=== PATIENT | female | born 1930 | race Caucasian/White ===

== ENCOUNTER 2019-09-11 09:56 | Emergency (ER) | payer MEDICARE, BC ==
--- OUTSIDE RECORDS SUMMARY | 2019-09-11 10:31 | XMS REPORT | Continuity of Care Document ---
:1930 External Reference #:[id number] Author Name Kristie Johnson MD Address [address] [place] [address] Care Team Providers Name Role Phone Kristie Johnson MD - Internal Care Team Information Principal Engineer Medicine Problems Active Problems Provider Date Benign essential hypertension Love Salomon, MSN, SKIN TANNER Onset: 2012 Edema Love Salomon, ALEXA, SKIN TANNER Onset: 10/24/2012 Hypothyroidism Tigist Boogie MD Onset: 03/04/2013 Benign neoplasm of renal pelvis Tigist Boogie MD Onset: 10/30/2011 Essential hypertension Esther Lombardo, STORE CLERK CHECKER Onset: 05/29/2011 Anemia Onset: 05/06/2015 Fracture of bone of hip region Onset: 05/01/2015 Disorder of bladder Jacquelyn Katz MD Onset: 08/19/2018 Eruption Jacquelyn Katz MD Onset: 01/20/2018 Chronic kidney disease stage 2 Jacquelyn Katz MD Onset: 01/20/2018 Vitamin D deficiency Jacquelyn Katz MD Onset: 01/20/2018 Social History Type Date Description Comments Sex Unknown Tobacco Use Start: Unknown Never Smoked Cigarettes ETOH Use Occasionally consumes beer Tobacco Use Start: Unknown Patient denies history of smoking Smoking Status Reviewed: 09/01/19 Patient denies history of smoking Allergies, Adverse Reactions, Alerts Active Allergies Reaction Severity Comments Date Macrolides and Ketolides Iodine Penicillins 05/01/2015 Fluorescein Hydrocodone Hallucinations 06/23/2015 Medications Active Medications SIG Qnty Indications Ordering Date Provider Amlodipine Besylate 1 by mouth every 30tabs I10 Ratnasingam, 2.5mg day MD Kristie 9 Tablets Colace 1 by mouth twice 60caps Sterling, Jacquelyn, 100mg Capsules daily as needed 8 for constipation Levothyroxine Sodium take one tablet by 90tabs Sharon, 75mcg mouth every day MD Sophie, 7 Tablets PHD Artificial Tears Sterling, Jacquelyn, 0.1-0.3% 6 Solution Furosemide 1 tab by mouth 30tabs R60.0 Salomon, Love 20mg Tablets every day needed Raymond 3 for leg swelling r MSN, SKIN TANNER Hydrochlorothiazide take one capsule 90caps Penny Katza, 12.5mg by mouth every day MD 2 Capsules Istalol 1 gtt OD qd Unknown 0.5% Solution 0 Prednisolone Acetate 1 gtt OD qod Unknown 1% 0 Suspension Vitamin D takes once in a Unknown 2000Unit Capsules while 0 Metoprolol Succinate ER take one tablet by 30tabs Ratnasingam, 100mg mouth every day MD Kristie 0 Tablets ER 24HR Immunizations CPT Code Status Date Vaccine Lot # [id number] Given 07/04/2019 Influenza High Dose U-Flu Given 06/06/2018 Influenza,Unspecified Q2038 Given 06/16/2016 Influenza Vaccine (Fluzone) Age 3 And Older 61164 Given 07/06/2015 Pneumococcal Conjugate Vaccine 13 Valent For [id number] Intramuscular Use Q2038 Given 05/29/2015 Influenza Vaccine (Fluzone) Age 3 And Older 20409 Given 06/05/2014 flu vaccination 76724 Given 06/20/2013 flu vaccination 24973 Given Unknown Pneumovax Injection Vital Signs Date Vital Result Comment 09/01/2019 3:48pm BP Systolic Sitting Left Arm 104 mmHg BP Diastolic Sitting Left Arm 52 mmHg Heart Rate 60 /min Respiratory Rate 24 /min Height 62 inches 5'2" Weight 97.00 lb BMI (Body Mass Index) 17.7 kg/m2 BSA (Body Surface Area) 1.41 m2 [place] body weight in kilograms 50 kg O2 % BldC Oximetry 98 % ra 02/17/2019 3:24pm BP Systolic Sitting Left Arm 108 mmHg BP Diastolic Sitting Left Arm 64 mmHg Body Temperature 98.4 F Heart Rate 57 /min Respiratory Rate 18 /min Height 62 inches 5'2" Weight 106.00 lb BMI (Body Mass Index) 19.4 kg/m2 BSA (Body Surface Area) 1.46 m2 [place] body weight in kilograms 50 kg O2 % BldC Oximetry 98 % Ra Results Test Acquired Date Facility Test Result H/L Range Note CBC 08/24/2019 [facility] White Blood 4.8 10^3/uL Normal 3.5-10.8 W/Automated [phone] Count Diff Red Blood Count 4.28 10^6/uL Normal 3.70-4.87 Hemoglobin 12.1 g/dL Normal 12.0-16.0 Hematocrit 36 % Normal 35-47 Mean Corpuscular Volume 84 fL Normal 80-97 Mean Corpuscular Hemoglobin 28 pg Normal 27-31 Mean Corpuscular HGB Conc 34 g/dL Normal 31-36 Red Cell Distribution Width 15 % Normal 10-15 Platelet Count 247 10^3/uL Normal 150-450 Mean Platelet Volume 8.8 fL Normal 7.4-10.4 Abs Neutrophils 3.1 10^3/uL Normal 1.5-7.7 Abs Lymphocytes 1.0 10^3/uL Normal 1.0-4.8 Abs Monocytes 0.5 10^3/uL Normal 0-0.8 Abs Eosinophils 0.1 10^3/uL Normal 0-0.6 Abs Basophils 0.1 10^3/uL Normal 0-0.2 Abs Nucleated RBC 0.0 10^3/uL Granulocyte % 64.3 % Lymphocyte % 21.7 % Monocyte % 10.5 % Eosinophil % 1.3 % Basophil % 2.2 % Nucleated Red Blood Cells % 0.1 Comprehensive 08/24/2019 [facility] Sodium 139 mmol/ L Normal 135-145 Metabolic Panel [phone] Potassium 3.9 mmol/L Normal 3.5-5.0 Chloride 100 mmol/L Low 101-111 Co2 Carbon Dioxide 31 mmol/L Normal 22-32 Anion Gap 8 mmol/L Normal 2-11 Glucose 97 mg/dL Normal 70-100 Blood Urea Nitrogen 24 mg/dL Normal 6-24 Creatinine 1.05 mg/dL High 0.51-0.95 BUN/Creatinine Ratio 22.9 High 8-20 Calcium 9.7 mg/dL Normal 8.6-10.3 Total Protein 6.8 g/dL Normal 6.4-8.9 Albumin 4.2 g/dL Normal 3.2-5.2 Globulin 2.6 g/dL Normal 2-4 Albumin/Globulin Ratio 1.6 Normal 1-3 Total Bilirubin 0.60 mg/dL Normal 0.2-1.0 Alkaline Phosphatase 77 U/L Normal 34-104 Alt 10 U/L Normal 7-52 Ast 24 U/L Normal 13-39 Egfr Non- 49.5 >60 Egfr 59.8 >60 1 Laboratory test 08/24/2019 [facility] Phosphorus 3.5 mg/dL Normal 2.5-5.0 finding [phone] Pthi 08/24/2019 [facility] Calcium (PTH 9.9 mg/dL Normal 8.6-10.3 [phone] Intact) PTH Intact 74.3 pg/mL Normal 12-88 Laboratory 07/17/2019 [facility] Blood Urea 22 mg/dL Normal 6-24 2, 3 test finding [phone] Nitrogen Creatinine 07/17/2019 [facility] Creatinine 0.99 High 0.51-0. [phone] mg/dL 95 Egfr Non- 52.9 >60 Egfr 64.1 >60 4 Laboratory test 07/13/2019 [facility] Blood Urea 20 mg/dL Normal 6-24 finding [phone] Nitrogen Creatinine 07/13/2019 [facility] Creatinine 1.12 High 0.51-0.9 [phone] mg/dL 5 Egfr Non- 45.9 >60 Egfr 55.6 >60 5 1 Because ethnic data is not always readily available, this report includes an eGFR for both -Americans and non- Americans. The National Kidney Disease Education Program (NKDEP) does not endorse the use of the MDRD equation for patients that are not between the ages of 18 and 70, are , have extremes of body size, muscle mass, or nutritional status, or are non- or non-. According to the National Kidney Foundation, irrespective of diagnosis, the stage of the disease is based on the level of kidney function: Stage Description GFR(mL/min/1.73 m(2)) 1 Kidney damage with normal or decreased GFR 90 2 Kidney damage with mild decrease in GFR 60-89 3 Moderate decrease in GFR 30-59 4 Severe decrease in GFR 15-29 5 Kidney failure <15 (or dialysis) 2 [id number] 3 [id number] 4 Because ethnic data is not always readily available, this report includes an eGFR for both -Americans and non- Americans. The National Kidney Disease Education Program (NKDEP) does not endorse the use of the MDRD equation for patients that are not between the ages of 18 and 70, are , have extremes of body size, muscle mass, or nutritional status, or are non- or non-. According to the National Kidney Foundation, irrespective of diagnosis, the stage of the disease is based on the level of kidney function: Stage Description GFR(mL/min/1.73 m(2)) 1 Kidney damage with normal or decreased GFR 90 2 Kidney damage with mild decrease in GFR 60-89 3 Moderate decrease in GFR 30-59 4 Severe decrease in GFR 15-29 5 Kidney failure <15 (or dialysis) 5 Because ethnic data is not always readily available, this report includes an eGFR for both -Americans and non- Americans. The National Kidney Disease Education Program (NKDEP) does not endorse the use of the MDRD equation for patients that are not between the ages of 18 and 70, are , have extremes of body size, muscle mass, or nutritional status, or are non- or non-. According to the National Kidney Foundation, irrespective of diagnosis, the stage of the disease is based on the level of kidney function: Stage Description GFR(mL/min/1.73 m(2)) 1 Kidney damage with normal or decreased GFR 90 2 Kidney damage with mild decrease in GFR 60-89 3 Moderate decrease in GFR 30-59 4 Severe decrease in GFR 15-29 5 Kidney failure <15 (or dialysis) Procedures Date Code Description Status 09/16/2013 [id number] Mammogram Completed Medical Devices Description No Information Available Encounters Type Date Location Provider Dx Diagnosis Office Visit 09/01/2019 [facility], [facility]1Darius Essential (primary) 4:00p Office MD Kristie hypertension E03.9 Hypothyroidism, unspecified N32.9 Bladder disorder, unspecified N18.2 Chronic kidney disease, stage 2 (mild) Assessments Date Code Description Provider 09/01/2019 I10 Essential (primary) hypertension Kristie Johnson MD 09/01/2019 E03.9 Hypothyroidism, unspecified Kristie Johnson MD 09/01/2019 N32.9 Bladder disorder, unspecified Kristie Johnson MD 09/01/2019 N18.2 Chronic kidney disease, stage 2 (mild) Kristie Johnson MD Plan of Treatment Future Appointment(s):03/02/2020 4:00 pm - Kristie Johnson MD at [facility]t0609/01/2019 - Kristie Johnson MDI10 Essential (primary ) hypertensionNew Medication:Amlodipine Besylate 2.5 mg - 1 by mouth every dayFollow up:f/u 6 months labs prior to fraboS86.9 Hypothyroidism, unspecifiedNew Labs:Comprehensive Metabolic Panel, Scheduled: 02/24/20CBC W/ Automated Diff, Scheduled: 02/24/20TSH Reflex FT4 And/Or FT3, Scheduled: N32.9 Bladder disorder, gjpwjiqdqdjE30.2 Chronic kidney disease, stage 2 (mild ) Functional Status Functional Condition Comment Date Status Rolling walker is used to ambulate Active Independent with all ADL's Active Mental Status Description No Information Available Referrals Description No Information Available
[2019-09-11 11:40] VITALS: BP 117/54
--- NOTE | 2019-09-11 12:28 | UC ---
Hip/Pelvis Pain - HPI Summary HPI Summary: 88-year-old female comes in with a chief complaint of a left hip pain. One week ago the patient tripped and fell and landed on her her left buttock. Patient has been able to walk since that time however walking does make the pain worse. Patient put ice on it which decreased the pain. Patient does have a left hip repair in 2014. - History Of Current Complaint Chief Complaint: UCLowerExtremity Stated Complaint: S/P FALL LEG INJURY Time Seen by Provider: 09/11/19 12:10 Pain Intensity: 8 - Allergies/Home Medications Allergies/Adverse Reactions: Allergies Allergy/AdvReac Type Severity Reaction Status Date / Time Iodine and Iodide Containing Allergy Anaphylatic Verified 09/11/19 10:43 Produc Shock Penicillins Allergy Rash Verified 09/11/19 10:43 Home Medications: Home Medications Acetaminophen [Acetaminophen Extra Strength] 500 mg PO Q6H PRN 09/11/19 [ History Confirmed 09/11/19] Levothyroxine TAB* [Synthroid TAB*] 75 mcg PO DAILY 09/11/19 [History Confirmed 09/11/19] Metoprolol Tartrate TAB* [Lopressor TAB*] 100 mg PO BID 09/11/19 [History Confirmed 09/11/19] amLODIPine TAB* [Norvasc 5 mg TAB*] 2.5 mg PO DAILY 09/11/19 [History Confirmed 09/11/19] PMH/Surg Hx/FS Hx/Imm Hx Previously Healthy: Yes Endocrine History: Hypothyroidism Cardiovascular History: Hypertension - Surgical History Surgical History: Yes Surgery Procedure, Year, and Place: Left Nephrectomy, 2010. Right Cataract Extraction, Corneal Trasplant, and Pressure Valve - Family History Known Family History: Positive: Non-Contributory - Social History Alcohol Use: None Substance Use Type: None Smoking Status (MU): Never Smoked Tobacco - Immunization History Most Recent Influenza Vaccination: JUN 2013 Review of Systems All Other Systems Reviewed And Are Negative: Yes Constitutional: Positive: Negative Skin: Positive: Negative Eyes: Positive: Negative ENT: Positive: Negative Respiratory: Positive: Negative Cardiovascular: Positive: Negative Gastrointestinal: Positive: Negative Motor: Positive: Other - SEE HPI Neurovascular: Positive: Negative Musculoskeletal: Positive: Other: - SEE HPI Neurological: Positive: Negative Psychological: Positive: Negative Is Patient Immunocompromised?: No Physical Exam Triage Information Reviewed: Yes Appearance: Well-Appearing, Well-Nourished, Pain Distress - MILD WITH LT HIP ROM AND EXAM Vital Signs: Initial Vital Signs Temp 97.8 F 09/11/19 10:40 Pulse 54 09/11/19 10:40 Resp 18 09/11/19 10:40 BP 125/46 09/11/19 10:40 Pulse Ox 100 09/11/19 10:40 Vital Signs Reviewed: Yes Eye Exam: Normal Eyes: Positive: Conjunctiva Clear Neck: Positive: Supple Respiratory: Positive: No respiratory distress Musculoskeletal: Positive: Other: - Patient is most tender to palpation over the left inferior pubic ramus on palpation. Mild tenderness to palpation over the left greater trochanter. Patient is able to move her legs. She also is able to ambulate using a cane and with assistance. Neurological: Positive: Alert Psychological: Positive: Age Appropriate Behavior Skin Exam: Normal Hip Injury Course/Dx - Course Course Of Treatment: Director Strategic Account Management: Mariano Keenan C ([id number]) Graphic Designer: MARIBEL ( MARIBEL) Report Date: 09/11/2019 12:09:00 Report Status: Final ====== Start of Report Content Patient Name: OLGA ROMAN Medical Record#: [id number] Ordering Physician: Donnie Hamilton MD Acct.#: [id number] : Age: 88 Sex: F Location: [facility] Exam Date: 09/11/19 1039 ADM Status: REG ER Order Information: HIP LEFT 2 VIEWS AND PELVIS Accession Number: [id number] CPT: 25648 Indication: Mid shaft LEFT femur pain post fall one week ago. Comparison: No relevant prior exams available on the [facility] for comparison. Technique: AP and lateral views LEFT femur. AP pelvis and AP and frog-leg lateral views LEFT hip. Report: #. No evidence for component fracture or loosening with regard to the gamma nail internal fixation at the LEFT hip. No persistent fracture plane at the LEFT femoral neck or intratrochanteric region. No acute LEFT femur fracture. #. Normally located LEFT hip. #. Subtle cortical contour irregularity at the LEFT inferior pubic ramus suspicious for a potential nondisplaced fracture. No additional pelvic fracture evident. #. Bone density appears decreased throughout. #. 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 #. Peripheral vascular calcifications. Unremarkable soft tissue contours. IMPRESSION: #. No evidence for LEFT hip or femur fracture. #. Probable insufficiency fracture at the LEFT inferior pubic ramus. < Electronically signed by Mariano Keenan MD in OV> 09/11/191207 Dictated By: Mariano Keenan MD Dictated Date/Time: 09/11/191203 Transcribed Date/Time: 1203 Copy to: CC:[facility]; Kristie Johnson MD; Donnie Hamilton MD Imaging - [facility] - [facility] - [facility] [address] [place] [address] ph ([phone]) ph ([phone]) ph ([phone]) End of Report Content Director Strategic Account Management: Mariano Keenan C, ([id number]) Graphic Designer: MARIBEL ( NUANCE) Report Date: 09/11/2019 12:09:00 Report Status: Final ====== Start of Report Content Patient Name: OLGA ROMAN Medical Record#: [id number] Ordering Physician: Donnie Hamilton MD Acct.#: [id number] : Age: 88 Sex: F Location: [facility] Exam Date: 09/11/19 103 ADM Status: REG ER Order Information: FEMUR LEFT Accession Number: [id number] CPT: 69470 Indication: Mid shaft LEFT femur pain post fall one week ago. Comparison: No relevant prior exams available on the [facility] for comparison. Technique: AP and lateral views LEFT femur. AP pelvis and AP and frog-leg lateral views LEFT hip. Report: #. No evidence for component fracture or loosening with regard to the gamma nail internal fixation at the LEFT hip. No persistent fracture plane at the LEFT femoral neck or intratrochanteric region. No acute LEFT femur fracture. #. Normally located LEFT hip. #. Subtle cortical contour irregularity at the LEFT inferior pubic ramus suspicious for a potential nondisplaced fracture. No additional pelvic fracture evident. #. Bone density appears decreased throughout. #. 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 #. Peripheral vascular calcifications. Unremarkable soft tissue contours. IMPRESSION: #. No evidence for LEFT hip or femur fracture. #. Probable insufficiency fracture at the LEFT inferior pubic ramus. <Electronically signed by Mariano Keenan MD in OV> 09/11/19 1208 Dictated By: Mariano Keenan MD Dictated Date/ Time: 09/11/19 120 Transcribed Date/Time: 09/11/191203 Copy to: CC:[facility]; Kristie Johnson MD; Donnie Hamilton MD Imaging - [facility] [id number] [place] [id number] [place] [address] ph ([phone]) ph ([phone]) ph ([phone]) ===== End of Report Content I discussed the x-rays with the patient and her daughter. Patient is tender to palpation over the left inferior pubic ramus at the site of the fracture. Patient is able to ambulate with a cane and assistance. She has a walker at home. We discussed the possibility of doing a CT scan for further evaluation of the pelvis however at this time it will not change our treatment plan so I am not ordering a CT of the pelvis at this time. Plan is likely patches helpful acetaminophen otherwise. Also using a walker or cane and assistance and following up with her orthopedist, Dr. Cosby. Reevaluate sooner if worse or any questions or concerns. - Differential Dx/Diagnosis Provider Diagnosis: Closed fracture of single pubic ramus of pelvis Discharge ED - Sign-Out/Discharge Documenting (check all that apply): Patient Departure All imaging exams completed and their final reports reviewed: Yes - Discharge Plan Condition: Stable Disposition: HOME Prescriptions: Lidocaine PATCH 5%* [Lidoderm 5% Patch*] 1 patch TRANSDERM DAILY #20 patch Patient Education Materials: Pelvic Fracture (ED) Referrals: Kristie Johnson MD [Primary Care Provider] - Lavell Cosby DO [Doctor of Osteopathy] - Additional Instructions: FOLLOW UP WITH YOUR ORTHOPEDIST, DR COSBY. GET REEVALUATED SOONER IF NOT IMPROVING OR GO TO THE EMERGENCY DEPARTMENT IF WORSE OR ANY QUESTIONS OR CONCERNS. - Billing Disposition and Condition Condition: STABLE Disposition: Home
== END 2019-09-11 12:33 | disposition home or self-care (01) ==
LOC: UCCORT 09:56
DX: S32.509A Unspecified fracture of unspecified pubis, initial encounter for closed fracture (principal); I10 Essential (primary) hypertension; E03.9 Hypothyroidism, unspecified; Z79.899 Other long term (current) drug therapy; Z79.890 Hormone replacement therapy; Z88.0 Allergy status to penicillin; Z91.09 Other allergy status, other than to drugs and biological substances; W01.0XXA Fall on same level from slipping, tripping and stumbling without subsequent striking against object, initial encounter; Y92.9 Unspecified place or not applicable
CPT/HCPCS: 99212; G0463